=== PATIENT | female | born 1985 | race Caucasian/White ===

== ENCOUNTER 2023-01-31 12:31 | Outpatient (CLI) | payer BC | END 2023-01-31 12:32 | disposition home or self-care (01) | LOC: CSHCT 12:31 | PROVIDERS: ATTEND Family Medicine | DX: R51.9 Headache, unspecified (principal) | CPT/HCPCS: 70450 ==

== ENCOUNTER 2024-12-14 10:49 | Outpatient (CLI) | payer BC | END 2024-12-14 10:50 | disposition home or self-care (01) | LOC: CSHRAD 10:49 | PROVIDERS: ATTEND Family Medicine | DX: M79.675 Pain in left toe(s) (principal) ==